=== PATIENT | male | born 1935 | race Caucasian/White ===

== ENCOUNTER 2017-07-09 08:43 | Inpatient (IN) ==
[2017-07-09 10:07] LABS: Basophils % 0.1 % (0.1-2.0); Eosinophils % 0.1 % (0.1-12.0); Hemoglobin 8.9 g/dL (14.1-18.0); Lymphocytes # 0.5 K/mm3 (0.7-4.5); Lymphocytes % 4.3 K/mm3 (10-50); Mean Corpuscular HGB Conc 29.7 g/dL (31.8-35.4); Mean Corpuscular Hemoglobin 29.9 pg (27.0-31.2); Mean Corpuscular Volume 100.6 fl (80-94); Mean Platelet Volume 8.2 fl (7.4-10.4); Monocytes # 0.4 K/mm3 (0.1-1.0); Monocytes % 3.1 % (1.7-9.3); Neutrophils # 10.2 K/mm3 (1.8-7.8); Neutrophils % 92.3 % (37.0-80.0); Platelet Count 540 K/mm3 (142-424); Red Blood Count 2.99 M/mm3 (4.60-6.20); Red Cell Distribution Width 15.3 % (11.5-17.5)
[2017-07-09 10:22] LABS: Anion Gap 6.6 mEq/L (5-15); Potassium 3.6 mmoL/L (3.5-5.1)
[2017-07-09 10:35] LABS: Albumin Level 1.7 gm/dL (3.4-5.0); Bilirubin,Direct 0.2 mg/dL (0.0-0.2); Bilirubin,Total 0.3 mg/dL (0.2-1.0); Total Protein,Serum 7.1 gm/dL (6.4-8.2)
--- NOTE | 2017-07-09 10:35 | Emergency Department Note ---
ED Disposition Clinical Impression: COPD with exacerbation, Hypoxia Pneumonia Qualifiers: Pneumonia type: due to unspecified organism Laterality: unspecified laterality Lung location: unspecified part of lung Qualified Code(s): J18.9 - Pneumonia, unspecified organism Disposition: Admitted As Inpatient Condition on Discharge: Fair Time of Disposition: 10:48 - Critical Care Critical Care Time: No Attestation: On 07/09/17, the high probability of a clinically significant, sudden or life threatening deterioration of the following system(s) required my full and direct attention, intervention and personal management. The time I documented below is in addition to time spent performing reported procedures but includes the following listed in this critical care notation. Medical Decision Making - Medical Records Medical records reviewed: Yes: I reviewed the patient's medical records. - [place] Inquiry Pt receiving controlled substance: No Vital Signs: 07/09/17 08:44 07/09/17 11:49 Temperature 98.6 F 98.0 F Temperature Source Oral Oral Pulse Rate 98 H Pulse Rate [Left Radial] 115 H Respiratory Rate 24 17 Blood Pressure 107/52 Blood Pressure [Right Arm] 125/49 Blood Pressure Mean [Right Arm] 74 Blood Pressure Source [Right Arm] Automatic Cuff Blood Pressure Position Sitting Blood Pressure Position [Right Arm] Supine 02 Sat by Pulse Oximetry 95 Oxygen Delivery Method Non-Rebreather Room Air - Lab Data Lab Results 07/09/17 09:50: WBC 11.0 H, RBC 2.99 L, Hgb 8.9 L, Hct 30.0 L, MCV 100.6 H, MCH 29.9, MCHC 29.7 L, RDW 15.3, Plt Count 540 H, MPV 8.2, Neut % (Auto) 92.3 H, Lymph % (Auto) 4.3 L, [place] % (Auto) 3.1, Eos % (Auto) 0.1, Baso % (Auto) 0.1, Neut # (Auto) 10.2 H, Lymph # (Auto) 0.5 L, [place] # (Auto) 0.4, Eos # (Auto) 0.0 , Baso # (Auto) 0.0, Total Counted 100, Neutrophils % (Manual) 93 H, Band Neutrophils % 1.0, Lymphocytes % (Manual) 3 L, Monocytes % (Manual) 3, Platelet Estimate Marked increase, RBC Morphology Normal 07/09/17 09:50: Sodium 139, Potassium 3.6, Chloride 101, Carbon Dioxide 35 H, Anion Gap 6.6, BUN 11, Creatinine 0.73, Estimated Creat Clear 57, Estimated GFR 103, Est GFR ( Amer) 124, Glucose 221 H 07/09/17 09:50: Lactic Acid 1.9 07/09/17 09:50: Total Bilirubin 0.3, Direct Bilirubin 0.2, AST 17, ALT 11 L, Alkaline Phosphatase 92, Total Protein 7.1, Albumin 1.7 L 07/09/17 09:50: Total Creatine Kinase 22 L, CK-MB (CK-2) 0.8, CK-MB (CK-2) Rel Index 3.6, Troponin I 0.06 Result diagrams: 07/10/17 06:24 07/10/17 06:24 Orders (Tests/Meds): ED MEDICATIONS Generic Name Dose Route Start Last Admin Trade Name Freq PRN Reason Stop Dose Admin Acetaminophen 500 mg 07/09/17 15:56 Tylenol 500mg Tablet PO 08/08/17 15:55 Q4HP PRN pain Acetaminophen/Codeine Phosphate 1 each 07/10/17 08:30 07/10/17 09:07 Tylenol #3 Tablet PO 08/09/17 08:29 1 each Q4HP PRN Administration BREAKTHROUGH PAIN Albuterol/Ipratropium 3 ml 07/09/17 20:00 07/10/17 06:37 Duoneb 3ml Neb IH 08/08/17 19:59 3 ml TIDRT CHITO Administration Alprazolam 0.25 mg 07/09/17 21:00 07/09/17 20:49 Xanax 0.25mg Tablet PO 08/08/17 20:59 0.25 mg HS CHITO Administration Amlodipine Besylate 10 mg 07/10/17 09:00 07/10/17 09:01 Norvasc 10mg Tablet PO 08/09/17 08:59 10 mg DAILY CHITO Administration Carvedilol 12.5 mg 07/09/17 17:00 07/10/17 06:55 Coreg 12.5mg Tablet PO 08/08/17 16:59 12.5 mg 0700,1700 CHITO Administration Clopidogrel Bisulfate 75 mg 07/10/17 09:00 07/10/17 09:03 Plavix 75mg Tablet PO 08/09/17 08:59 75 mg DAILY CHITO Administration Docusate Sodium 250 mg 07/10/17 09:00 07/10/17 09:02 Colace 250mg Capsule PO 08/09/17 08:59 250 mg DAILY CHITO Administration Donepezil HCl 10 mg 07/09/17 21:00 07/09/17 21:11 Aricept 10mg Tablet PO 08/08/17 20:59 Not Given HS [facility] Famotidine 20 mg 07/10/17 09:00 07/10/17 09:02 Pepcid 20mg Tablet PO 08/09/17 08:59 20 mg DAILY CHITO Administration Ferrous Sulfate 325 mg 07/09/17 21:00 07/10/17 09:06 Ferrous Sulfate 325mg Tablet PO 08/08/17 20:59 325 mg BID CHITO Administration Gabapentin 300 mg 07/09/17 21:00 07/10/17 09:02 Neurontin 300mg Capsule PO 08/08/17 20:59 300 mg TID CHITO Administration Guaifenesin 100 mg 07/09/17 15:56 Robitussin 200mg/10ml Syrup Udc PO 08/08/17 15:55 Q6HP PRN Cough Levofloxacin/Dextrose 500 mg in 100 mls @ 100 mls/hr 07/10/17 09:00 07/10/17 09:05 Levaquin 500mg/100ml Premix IV 07/23/17 08:59 100 mls/hr Q24H CHITO Administration Protocol Sodium Chloride 1,000 mls @ 75 mls/hr 07/09/17 11:42 07/10/17 08:00 Sod Chlor 0.9% 1000ml Bag IV 08/08/17 11:41 75 mls/hr .[id number] CHITO Administration Piperacillin Sod/Tazobactam 50 mls @ 100 mls/hr 07/09/17 17:00 07/10/17 11:42 Sod 3.375 gm/ Sodium Chloride IV 07/23/17 16:59 100 mls/hr Q6 CHITO Administration Protocol Sodium Chloride 250 mls @ 25 mls/hr 07/09/17 18:30 07/10/17 08:00 Sod Chlor 0.9% 250ml Bag IV 07/10/17 18:29 Not Given .Q10H CHITO Isosorbide Mononitrate 30 mg 07/10/17 09:00 07/10/17 09:03 Imdur 30mg Er Tablet PO 08/09/17 08:59 30 mg DAILY CHITO Administration Lactobacillus 1 cap 07/09/17 21:00 07/10/17 09:02 Noy-Q Probiotic Capsule PO 08/08/17 20:59 1 cap BID CHITO Administration Mirtazapine 15 mg 07/09/17 21:00 07/09/17 20:50 Remeron 15mg Tablet PO 08/08/17 20:59 15 mg HS CHITO Administration Ondansetron HCl 4 mg 07/09/17 15:56 Zofran 4mg Odt PO Q8H PRN Nausea Quetiapine Fumarate 25 mg 07/09/17 21:00 07/09/17 20:49 Seroquel 25mg Tablet PO 08/08/17 20:59 25 mg HS CHITO Administration Discontinued Medications Generic Name Dose Route Start Last Admin Trade Name Freq PRN Reason Stop Dose Admin Atorvastatin Calcium 10 mg 07/09/17 21:00 Lipitor 10mg Tablet PO 08/08/17 20:59 HS CHITO Ferrous Sulfate 325 mg 07/10/17 09:00 Ferrous Sulfate 325mg Tablet PO 08/09/17 08:59 DAILY CHITO Levofloxacin/Dextrose 250 mg in 50 mls @ 100 mls/hr 07/09/17 10:00 07/09/17 10:48 Levaquin 250mg/50ml Premix IV 07/23/17 09:59 Not Given Q24H CHITO Protocol Piperacillin Sod/Tazobactam 100 mls @ 200 mls/hr 07/09/17 10:00 07/09/17 11: 37 Sod 3.375 gm/ Sodium Chloride IV 07/23/17 09:59 200 mls/hr Q6H CHITO Administration Protocol Levofloxacin/Dextrose 500 mg in 100 mls @ 100 mls/hr 07/09/17 10:45 07/09/17 10:42 Levaquin 500mg/100ml Premix IV 07/23/17 10:44 100 mls/hr Q24H CHITO Administration Protocol Piperacillin Sod/Tazobactam 100 mls @ 200 mls/hr 07/09/17 17:00 Sod 3.375 gm/ Sodium Chloride IV 07/23/17 16:59 Q6 CHITO Protocol Loratadine 10 mg 07/10/17 09:00 Claritin 10mg Tablet PO 08/09/17 08:59 DAILY CHITO Multivitamins 1 each 07/10/17 09:00 Multi-Vitamin Plain PO 08/09/17 08:59 DAILY CHITO ORDERS Category Date Time Status Blood Culture Stat Micro 07/09/17 09:50 Results Sputum Culture & Gram Stain Stat Micro 07/09/17 18:10 Results - Radiology Data #1 Image(s): Chest Image Reviewed: Yes I reviewed the patient's radiology results, Yes I reviewed the patient's radiology image, Yes I have reviewed radiologist's interpretation [address] [facility] [address] [place] [address] XRay Report Signed Patient: Mikal Robison MR#: [id number] : 1935 Acct:[id number] Age/Sex: 81 / M ADM Date: 07/09/17 Loc: ER Attending Dr: Ordering Physician: Kennedy Hollingsworth MD Date of Service: 07/09/17 Procedure(s): XR chest portable Accession Number(s): [id number] cc: Mehrdad Toledo MD; Sam Wood MD~ XR chest portable HISTORY: ITS.REASON: SOA ORDERING PHYSICIAN: Kennedy Hollingsworth MD PATIENT AGE: 81 years COMPARISON: 01/01/2017 FINDINGS: There has been a prior median sternotomy with CABG. There is mild cardiomegaly without failure. Increasing density is present in the left lower lobe with obliteration of left hemidiaphragm consistent with left lower lobe consolidation and/or volume loss. There is also increasing density in the left upper lobe and in the lateral aspect of the left midlung. These findings are consistent with left-sided pneumonia. Chronic changes are present with postsurgical changes in the right lower lobe and a faint nodular opacity in the right mid to lower lung zone at 9 mm. IMPRESSION: 1. Left upper and left lower lobe pneumonia. 2. Postsurgical and chronic changes with possible 9 mm nodule in right middle lower lung zone laterally Dictated By: Mehrdad Toledo MD Signed By: <Electronically signed by Mehrdad Toledo MD in OV> 07/09/17 1047 DD/ 1045 - ECG Data Tracing #1 I reviewed this ECG and interpreted as documented below: Heart rate 88, no acute ischemic changes ECG normal with no acute: arrhythmias, ischemia, conduction abnormalities, chamber hypertrophy Normal Sinus Rhythm: Yes - Physician Consults Physician Consulted: Dr Travis Time: 10:30 Reason -: Admission, Pt condition Comment/Response: Advise of patient's presentation and findings, agreeable with hospitalization. - Reevaluation(s) Time: 10:30 Reevaluation #1: Ablation patient appears medically stable, in mild respiratory distress, no longer hypoxic. Advise patient of results obtained, need to place him in hospital, for additional monitoring and IV therapy. Resp/SOB HPI - General Chief Complaint: Shortness of Breath/Dyspnea Stated Complaint: SOA Time Seen by Provider: 07/09/17 08:45 Mode of Arrival: EMS Source of Information: Patient Limitations: No Limitations Description of Symptoms (Recalled from ER Triage Doc. by RN): PT oxygen was 76 on NC, EMS upon arrival o2 was 85, duoneb was given and 02 was in the 90s. - History of Present Illness Patient 80-year-old male patient brought in by EMS with difficulty breathing, pulse ox on arrival is 83% on room air. Patient has been having subjective fever, productive cough for the past 2-3 days, associated with some mild chest pain, no diaphoresis. Patient denies any recent travel, denies recent exposure to sick contacts. MD Complaint: shortness of breath, cough Onset (ago): day(s) (3) Context: recent illness Severity: moderate Consistency/Duration: constant Relieving factors: oxygen Exacerbating factors: lying flat Known history of: COPD Associated symptoms: chest pain, fever, cough, wheezing, sputum production Treatment prior to arrival: oxygen - Related Data Home Medications Medication Instructions Recorded Confirmed ALPRAZolam [Xanax 0.25mg tab] 0.25 mg PO HS 07/09/17 07/09/17 Acetaminophen [Tylenol 500mg 500 mg PO Q4HP PRN 07/09/17 07/09/17 tablet] Acetaminophen with Codeine 1 tab PO Q4HP PRN 07/09/17 07/09/17 [Tylenol with Codeine #3 tablet] Amlodipine Besylate [Amlodipine 10 mg PO DAILY 07/09/17 07/09/17 10mg Tab] Atorvastatin Calcium [Atorvastatin 10 mg PO HS 07/09/17 07/09/17 10mg Tab] Bisacodyl [Bisacodyl 10mg Supp] 10 mg RC DAILYP PRN 07/09/17 07/09/17 Carvedilol [Coreg 12.5mg 12.5 mg PO 0700,1700 07/09/17 07/09/17 Tablet] Cholecalciferol (Vitamin D3) 50,000 unit PO WEEKLY 07/09/17 07/09/17 [Vitamin D3 50,000 unit Cap] Clopidogrel Bisulfate [Plavix 75mg 75 mg PO DAILY 07/09/17 07/09/17 Tab] Docusate Sodium [Colace 250mg 250 mg PO DAILY 07/09/17 07/09/17 capsule] Famotidine [Acid Controller] 20 mg PO DAILY 07/09/17 07/09/17 Ferrous Sulfate [Ferrous Sulfate 325 mg PO DAILY 07/09/17 07/09/17 325mg Tablet] Gabapentin [Gabapentin 300mg Cap] 300 mg PO TID 07/09/17 07/09/17 Ipratropium/Albuterol Sulfate 1 puff IH QIDRT 07/09/17 07/09/17 [Combivent Respimat Inh] Isosorbide Mononitrate [Imdur 30mg 30 mg PO DAILY 07/09/17 07/09/17 ER tablet] L. Acidophilus/L.bulgaricus 1 each PO BID 07/09/17 07/09/17 [Floranex Tablet] Loperamide HCl [Loperamide] 2 mg PO Q3HP PRN 07/09/17 07/09/17 Loratadine [Claritin] 10 mg PO DAILY 07/09/17 07/09/17 Mag Carb/Aluminum Hydrox/Algin 30 ml PO TID 07/09/17 07/09/17 [Gaviscon Extra Strength Liquid] Mirtazapine [Remeron 15mg tablet] 15 mg PO HS 07/09/17 07/09/17 Multivitamin [Multi-Day Vitamins] 1 tab PO DAILY 07/09/17 07/09/17 Nitroglycerin 0.4 mg SL Q5MINP PRN 07/09/17 07/09/17 Ondansetron HCl [Zofran 4mg Tab] 4 mg PO Q8H PRN 07/09/17 07/09/17 Phenol [Chloraseptic] 2 sprays MM Q4H PRN 07/09/17 07/09/17 Quetiapine Fumarate [Seroquel] 25 mg PO HS 07/09/17 07/09/17 Sennosides [Senokot 8.6mg tablet] 17.2 mg PO BID 07/09/17 07/09/17 Sod Phos,M-B/Na Phos,Di-Ba [Enema 133 ml RC DAILY PRN 07/09/17 07/09/17 Ready To Use] Vit C/Dietary Supplement No.18 1,000 mg PO DAILY 07/09/17 07/09/17 [Red Wine Extract Plus Capsule] guaiFENesin [Robafen] 100 mg PO Q6HP PRN 07/09/17 07/09/17 Allergies Allergy/AdvReac Type Severity Reaction Status Date / Time metronidazole [From FLAGYL] Allergy Intermediate I-RASH Verified 07/09/17 09:03 [facility] History I have reviewed the patient's past medical history: Yes Medical History: Reports:: Cancer (Left lung), Diabetes Mellitus Type 2 - Social History Alcohol Intake: never - Psychiatric History Expresses thoughts of harming self/others: None Suicide Plan Description: No Plan ROS Obtained: Yes All systems reviewed & no additional complaints, Yes Systems reviewed as appropriate & no additional complaints - Cardiovascular Cardiovascular: Reports system reviewed and no additional complaints, except as docu, Reports as per HPI, Reports chest pain, Reports chest pain at rest - Respiratory Respiratory: Yes system reviewed and no additional complaints, except as docu, Yes as per HPI, Yes change in phlegm color, Yes chest congestion, Yes cough, Yes dyspnea Physical Exam - General General appearance: alert, in no apparent distress - Head Head exam: atraumatic, normocephalic, normal inspection - Neck Neck exam: Present: normal inspection, full ROM, trachea midline. Absent: meningismus, lymphadenopathy - Chest Chest inspection: Present: normal inspection, symmetric chest wall rise. Absent : tenderness - Respiratory Respiratory exam: Present: respiratory distress (moderate), wheezes - Cardiovascular Cardiovascular exam: Present: regular rate, normal rhythm. Absent: JVD - Abdominal Exam Abdominal exam: Present: soft, normal bowel sounds. Absent: distention, tenderness, guarding - Extremities Exam Extremities exam: Present: normal inspection, full ROM, normal capillary refill. Absent: calf tenderness - Back Exam Back exam: Present: normal inspection. Absent: tenderness - Neurological Exam Neurological exam: Present: alert, oriented X3, CN II-XII intact, normal gait, motor sensory deficit, reflexes normal - Psychiatric Psychiatric exam: Present: depressed, flat affect - Skin Skin exam: Present: warm, dry, intact, normal color - Lymphatic Lymphatic Findings: no adenopathy
[2017-07-09 10:44] LABS: Lymphocytes % 3 % (10-50); Monocytes % 3 % (2-9); Neutrophils % 93 % (42-76); Total Cells Counted 100
[2017-07-09 10:45] LABS: RBC Morphology Normal
--- NOTE | 2017-07-09 13:59 | History & Physical Report ---
*Admission Date: 07/09/17 *Chief complaint: SOA *History of present illness: Mr. Robison is an 81[address] patient of [address] Johnson from [facility] who, according to the senior living record began having SOA today with decreasing saturations even on 6L of oxygen. He does have a hx of CAD, lung cancer, dementia, HLP, iron deficiency anemia, type 2 DM, PVD, COPD, anxiety, hx of peptic ulcer, and HTN. The patient is very hard of hearing and difficult to understand. He can answer yes or no to questions. He states he has had a cough but does not feel SOA. He denies any pain. He was evaluated in the ER and found to have pneumonia. He was admitted for treatment. [facility] History Medical History: Reports:: Anxiety, Cancer (right lung), Chronic Obstructive Pulmonary Disease (COPD), Coronary Artery Disease, Dementia, Diabetes Mellitus Type 2, Hyperlipidemia, Hypertension, Peripheral Vascular Disease, Ulcer Other Medical History: Reports: Anemia, Arthritis Comment: hx of C.Diff, AAA Other Surgeries: Yes: CABG, Cancer Surgery Comment: Perforated Ulcer, Back Surgery, Foot Surgery - *Social History Alcohol Intake: never - Psychiatric History Expresses thoughts of harming self/others: None Suicide Plan Description: No Plan *Family Hx:: Unable to obtain Review of Systems - Constitutional Reports weakness, Denies body ache(s), Denies chills, Denies fever(s) - Eyes Denies blurry vision, Denies double vision - ENT Reports abnormal hearing, Reports difficulty swallowing, Denies nasal congestion - *Cardiovascular Denies chest pain - *Respiratory Reports cough, Denies shortness of breath - *Gastrointestinal Denies abdominal pain, Denies loose stools, Denies nausea, Denies vomiting - *Genitourinary Denies difficulty urinating, Denies painful urination - *Musculoskeletal Denies joint pain, Denies body aches - *Neurologic Reports abnormal speech, Reports weakness Meds Home Medications Medication Instructions Recorded Confirmed Type ALPRAZolam [Xanax 0.25mg tab] 0.25 mg PO HS 07/09/17 07/09/17 History Acetaminophen [Tylenol 500mg 500 mg PO Q4HP PRN 07/09/17 07/09/17 History tablet] Acetaminophen with Codeine 1 tab PO Q4HP PRN 07/09/17 07/09/17 History [Tylenol with Codeine #3 tablet] Amlodipine Besylate [Amlodipine 10 mg PO DAILY 07/09/17 07/09/17 History 10mg Tab] Atorvastatin Calcium [Atorvastatin 10 mg PO HS 07/09/17 07/09/17 History 10mg Tab] Bisacodyl [Bisacodyl 10mg Supp] 10 mg RC DAILYP PRN 07/09/17 07/09/17 History Carvedilol [Coreg 12.5mg 12.5 mg PO 0700,1700 07/09/17 07/09/17 History Tablet] Cholecalciferol (Vitamin D3) 50,000 unit PO WEEKLY 07/09/17 07/09/17 History [Vitamin D3 50,000 unit Cap] Clopidogrel Bisulfate [Plavix 75mg 75 mg PO DAILY 07/09/17 07/09/17 History Tab] Docusate Sodium [Colace 250mg 250 mg PO DAILY 07/09/17 07/09/17 History capsule] Famotidine [Acid Controller] 20 mg PO DAILY 07/09/17 07/09/17 History Ferrous Sulfate [Ferrous Sulfate 325 mg PO DAILY 07/09/17 07/09/17 History 325mg Tablet] Gabapentin [Gabapentin 300mg Cap] 300 mg PO TID 07/09/17 07/09/17 History Ipratropium/Albuterol Sulfate 1 puff IH QIDRT 07/09/17 07/09/17 History [Combivent Respimat Inh] Isosorbide Mononitrate [Imdur 30mg 30 mg PO DAILY 07/09/17 07/09/17 History ER tablet] L. Acidophilus/L.bulgaricus 1 each PO BID 07/09/17 07/09/17 History [Floranex Tablet] Loperamide HCl [Loperamide] 2 mg PO Q3HP PRN 07/09/17 07/09/17 History Loratadine [Claritin] 10 mg PO DAILY 07/09/17 07/09/17 History Mag Carb/Aluminum Hydrox/Algin 30 ml PO TID 07/09/17 07/09/17 History [Gaviscon Extra Strength Liquid] Mirtazapine [Remeron 15mg tablet] 15 mg PO HS 07/09/17 07/09/17 History Multivitamin [Multi-Day Vitamins] 1 tab PO DAILY 07/09/17 07/09/17 History Nitroglycerin 0.4 mg SL Q5MINP PRN 07/09/17 07/09/17 History Ondansetron HCl [Zofran 4mg Tab] 4 mg PO Q8H PRN 07/09/17 07/09/17 History Phenol [Chloraseptic] 2 sprays MM Q4H PRN 07/09/17 07/09/17 History Quetiapine Fumarate [Seroquel] 25 mg PO HS 07/09/17 07/09/17 History Sennosides [Senokot 8.6mg tablet] 17.2 mg PO BID 07/09/17 07/09/17 History Sod Phos,M-B/Na Phos,Di-Ba [Enema 133 ml RC DAILY PRN 07/09/17 07/09/17 History Ready To Use] Vit C/Dietary Supplement No.18 1,000 mg PO DAILY 07/09/17 07/09/17 History [Red Wine Extract Plus Capsule] guaiFENesin [Robafen] 100 mg PO Q6HP PRN 07/09/17 07/09/17 History Allergies Allergy/AdvReac Type Severity Reaction Status Date / Time metronidazole [From FLAGYL] Allergy Intermediate I-RASH Verified 07/09/17 09:03 Exam Vital signs and Labs for Last 24 Hours: Temp Pulse Resp BP Pulse Ox 98.3 F 95 H 20 133/57 92 L 07/09/17 12:09 07/09/17 12:09 07/09/17 12:09 07/09/17 12:09 07/09/17 12:09 Lab Results 07/09/17 09:50: WBC 11.0 H, RBC 2.99 L, Hgb 8.9 L, Hct 30.0 L, MCV 100.6 H, MCH 29.9, MCHC 29.7 L, RDW 15.3, Plt Count 540 H, MPV 8.2, Neut % (Auto) 92.3 H, Lymph % (Auto) 4.3 L, [place] % (Auto) 3.1, Eos % (Auto) 0.1, Baso % (Auto) 0.1, Neut # (Auto) 10.2 H, Lymph # (Auto) 0.5 L, [place] # (Auto) 0.4, Eos # (Auto) 0.0 , Baso # (Auto) 0.0, Total Counted 100, Neutrophils % (Manual) 93 H, Band Neutrophils % 1.0, Lymphocytes % (Manual) 3 L, Monocytes % (Manual) 3, Platelet Estimate Marked increase, RBC Morphology Normal 07/09/17 09:50: Sodium 139, Potassium 3.6, Chloride 101, Carbon Dioxide 35 H, Anion Gap 6.6, BUN 11, Creatinine 0.73, Estimated Creat Clear 57, Estimated GFR 103, Est GFR ( Amer) 124, Glucose 221 H 07/09/17 09:50: Lactic Acid 1.9 07/09/17 09:50: Total Bilirubin 0.3, Direct Bilirubin 0.2, AST 17, ALT 11 L, Alkaline Phosphatase 92, Total Protein 7.1, Albumin 1.7 L 07/09/17 09:50: Total Creatine Kinase 22 L, CK-MB (CK-2) 0.8, CK-MB (CK-2) Rel Index 3.6, Troponin I 0.06 Microbiology Results 07/09/17 09:50 Blood Blood Culture - Pending 07/09/17 09:06 Blood Blood Culture - Pending - Constitutional no acute distress (hard of hearing, mumbled speech) - *Routine HEENT Exam Head: Present: normocephalic, atraumatic Eye: Present: EOMI, PERRL ENT: Present: mucous membranes dry - *Routine Neck Exam Present: supple, full ROM - *Routine Respiratory Exam Present: rhonchi (left side), crackles (left base) - *Routine Cardiovascular Exam Present: RRR - *Routine Abdominal Exam Present: soft, normoactive bowel sounds. Absent: tenderness - *Routine Extremities Exam Present: edema - *Routine Skin Exam Present: intact, pallor - *Routine Neurological Exam Present: alert mumbled speech H&P: Result - Impressions CXR - 1. Left upper and left lower lobe pneumonia. 2. 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 Category: Medical Code(s): D02.21 - Carcinoma in situ of right bronchus and lung (3) ASCVD (arteriosclerotic cardiovascular disease) Current visit: Yes Status: Chronic Category: Medical Code(s): I25.10 - Atherosclerotic heart disease of [place] coronary artery without angina pectoris (4) Hypertension Current visit: Yes Status: Chronic Category: Medical Code(s): I10 - Essential (primary) hypertension (5) Hyperlipidemia Current visit: Yes Status: Chronic Category: Medical Code(s): E78.5 - Hyperlipidemia, unspecified (6) Type 2 diabetes mellitus Current visit: Yes Status: Chronic Category: Medical Code(s): E11.9 - Type 2 diabetes mellitus without complications (7) Iron deficiency anemia Current visit: Yes Status: Chronic Category: Medical Code(s): D50.9 - Iron deficiency anemia, unspecified (8) Dysphagia Current visit: Yes Status: Chronic Category: Medical Code(s): R13.10 - Dysphagia, unspecified (9) COPD (chronic obstructive pulmonary disease) Current visit: Yes Status: Chronic Category: Medical Code(s): J44.9 - Chronic obstructive pulmonary disease, unspecified (10) Chronic peptic ulcer Current visit: Yes Status: Chronic Category: Medical Code(s): K27.7 - Chronic peptic ulcer, site unspecified, without hemorrhage or perforation - Assessment and plan all Dx Assessment and Plan for all problems:: Pt has been started on abx and an oxygen mask. Will get a list of his home medications and discuss further care with Dr. Travis. He has apparently had some issues with dysphagia. Will get a swallowing evaluation as well.
[2017-07-10 07:09] LABS: Basophils % 0.2 % (0.1-2.0); Eosinophils % 0.1 % (0.1-12.0); Hematocrit 36.9 % (42.0-52.0); Lymphocytes # 0.9 K/mm3 (0.7-4.5); Lymphocytes % 7.9 K/mm3 (10-50); Mean Corpuscular HGB Conc 30.6 g/dL (31.8-35.4); Mean Corpuscular Hemoglobin 30.4 pg (27.0-31.2); Mean Corpuscular Volume 99.2 fl (80-94); Mean Platelet Volume 7.9 fl (7.4-10.4); Monocytes # 0.5 K/mm3 (0.1-1.0); Monocytes % 4.3 % (1.7-9.3); Neutrophils # 9.6 K/mm3 (1.8-7.8); Neutrophils % 87.6 % (37.0-80.0); Platelet Count 381 K/mm3 (142-424); Red Blood Count 3.72 M/mm3 (4.60-6.20); Red Cell Distribution Width 15.5 % (11.5-17.5)
[2017-07-10 07:18] LABS: Hemoglobin 11.3 g/dL (14.1-18.0)
--- NOTE | 2017-07-10 07:21 | Pharmacy Consult Notes ---
[facility] Pharmacy VTE Monitoring - Patient Demographics Admission date: 07/09/17 Report Date: 07/10/17 Time: 07:20 Allergies/Adverse Reactions: Patient Allergies metronidazole [From FLAGYL] Allergy (Intermediate, Verified 07/09/17 09:03) I-RASH Height: 1.55 m Weight: 52.418 kg Patient Problems: Current Active Problems Pneumonia (Acute) Carcinoma in situ of right lung (Chronic) ASCVD (arteriosclerotic cardiovascular disease) (Chronic) Hypertension (Chronic) Hyperlipidemia (Chronic) Type 2 diabetes mellitus (Chronic) Iron deficiency anemia (Chronic) Dysphagia (Chronic) COPD (chronic obstructive pulmonary disease) (Chronic) Chronic peptic ulcer (Chronic) - VTE Risk Labs: VTE Related Lab Results Hgb 11.3 g/dL (14.1-18.0) L D 07/10/17 06:24 Hct 36.9 % (42.0-52.0) L 07/10/17 06:24 Plt Count 381 K/mm3 (142-424) D 07/10/17 06:24 BUN 11 mg/dL (7-18) 07/09/17 09:50 Creatinine 0.73 mg/dL (0.70-1.30) 07/09/17 09:50 Estimated Creat Clear 57 mL/min (0-300) 07/09/17 09:50 Was VTE Risk Assessment Performed: Yes VTE Score: 6 VTE Risk Level: Moderate Risk - Prophylaxis VTE Prophylaxis Ordered?: Yes Types of VTE Prophylaxis: TEDS Knee High Location of Applied Device: Bilateral Lower Extremeties - VTE Diagnosis Confirmed Treatment or plan recommended: Continue Current Treatment
[2017-07-10 07:22] LABS: Anion Gap 8.6 mEq/L (5-15); Potassium 3.6 mmoL/L (3.5-5.1)
--- NOTE | 2017-07-10 08:33 | Progress Note ---
Internal Medicine - PN: Subj *Date: 07/10/17 *Time: 08:29 Interval history: Patient is more awake and alert today. He states he has had a cough and some shortness of breath. He slept off and on throughout the night but was uncomfortable. Of note he has a huge stage IV decubitus in the coccygeal area. Wound care has been consulted for treatment. Exam Vital signs and Labs for Last 24 Hours: Temp Pulse Resp BP Pulse Ox 98.7 F 94 H 20 164/68 96 07/10/17 07:34 07/10/17 07:34 07/10/17 07:34 07/10/17 07:34 07/10/17 08:00 Laboratory Results - last 24 hr 07/09/17 18:40: Blood Type O Positive, Antibody Screen Negative, Crossmatch (AHG ) See Detail 07/09/17 18:40: Crossmatch (AHG) See Detail 07/10/17 06:24: WBC 11.0 H, RBC 3.72 L, Hgb 11.3 L D, Hct 36.9 L, MCV 99.2 H, MCH 30.4, MCHC 30.6 L, RDW 15.5, Plt Count 381 D, MPV 7.9, Neut % (Auto) 87.6 H , Lymph % (Auto) 7.9 L, [place] % (Auto) 4.3, Eos % (Auto) 0.1, Baso % (Auto) 0.2, Neut # (Auto) 9.6 H, Lymph # (Auto) 0.9, [place] # (Auto) 0.5, Eos # (Auto) 0.0, Baso # (Auto) 0.0 07/10/17 06:24: Sodium 142, Potassium 3.6, Chloride 104, Carbon Dioxide 33 H, Anion Gap 8.6, BUN 10, Creatinine 0.59 L, Estimated Creat Clear 41, Estimated GFR 131, Est GFR ( Amer) 159 D, Glucose 128 H D I & O for Last 24 hours: Intake & Output 07/07/17 07/08/17 07/09/17 07/10/17 11:59 11:59 11:59 11:59 Intake Total 1880 Balance 1880 Weight 115 lb 9 oz Microbiology Reports for the Last 24 Hours: Microbiology 07/09/17 18:10 Sputum - Expectorated Sputum Gram Stain - Final 07/09/17 18:10 Sputum - Expectorated Sputum Sputum Culture - Preliminary - Constitutional no acute distress - *Routine Respiratory Exam Present: rales (on the left, rhonchi throughout) - *Routine Cardiovascular Exam Present: RRR - *Routine Abdominal Exam Present: soft, normoactive bowel sounds. 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 Category: Medical Code(s): D02.21 - Carcinoma in situ of right bronchus and lung (3) ASCVD (arteriosclerotic cardiovascular disease) Current visit: Yes Status: Chronic Category: Medical Code(s): I25.10 - Atherosclerotic heart disease of [place] coronary artery without angina pectoris (4) Hypertension Current visit: Yes Status: Chronic Category: Medical Code(s): I10 - Essential (primary) hypertension (5) Hyperlipidemia Current visit: Yes Status: Chronic Category: Medical Code(s): E78.5 - Hyperlipidemia, unspecified (6) Type 2 diabetes mellitus Current visit: Yes Status: Chronic Category: Medical Code(s): E11.9 - Type 2 diabetes mellitus without complications (7) Iron deficiency anemia Current visit: Yes Status: Chronic Category: Medical Code(s): D50.9 - Iron deficiency anemia, unspecified (8) Dysphagia Current visit: Yes Status: Chronic Category: Medical Code(s): R13.10 - Dysphagia, unspecified (9) COPD (chronic obstructive pulmonary disease) Current visit: Yes Status: Chronic Category: Medical Code(s): J44.9 - Chronic obstructive pulmonary disease, unspecified (10) Chronic peptic ulcer Current visit: Yes Status: Chronic Category: Medical Code(s): K27.7 - Chronic peptic ulcer, site unspecified, without hemorrhage or perforation (11) Decubitus ulcer, stage 4 Current visit: Yes Status: Acute Category: Medical Code(s): L89.94 - Pressure ulcer of unspecified site, stage 4 - Assessment and plan all Dx Assessment and Plan for all problems:: We will continue IV antibiotics and await sputum culture. According to nursing staff, the patient will not leave on his oxygen mask. He is therefore on nasal oxygen at 3 L and his sats have been in the upper 80s. Patient is uncomfortable due to his decubitus ulcer. Wound care has been consulted and we will resume his Tylenol with Codeine that he was taking at the residential for pain.
[2017-07-10 10:05] LABS: Hypochromasia 3+; Lymphocytes % 6 % (10-50); Monocytes % 9 % (2-9); Neutrophils % 84 % (42-76); Total Cells Counted 100
--- NOTE | 2017-07-10 12:14 | Consult Report ---
*Admission Date: 07/09/17 *Chief complaint: Complex decubitus ulceration *History of present illness: This is an 81-year-old gentleman seen in consultation from the service of Dr. willis for evaluation regarding a complex decubitus ulceration. Below is from his admission H&P: Mr. Robison is an 81yo patient of [address] Johnson from [facility] who, according to the [facility] record began having SOA today with decreasing saturations even on 6L of oxygen. He does have a hx of CAD, lung cancer, dementia, HLP, iron deficiency anemia, type 2 DM, PVD, COPD, anxiety, hx of peptic ulcer, and HTN. The patient is very hard of hearing and difficult to understand. He can answer yes or no to questions. He states he has had a cough but does not feel SOA. He denies any pain. He was evaluated in the ER and found to have pneumonia. He was admitted for treatment. Review of Systems - Review of Systems Review of systems:: unable to obtain - *Neurologic Reports abnormal hearing, Reports abnormal speech, Reports weakness [facility] History Medical History: Reports:: Anxiety, Cancer (Left lung), Chronic Obstructive Pulmonary Disease (COPD), Coronary Artery Disease, Dementia, Diabetes Mellitus Type 2, Hyperlipidemia, Hypertension, Peripheral Vascular Disease, Ulcer Other Medical History: Reports: Anemia, Arthritis Other Surgeries: Yes: CABG, Cancer Surgery - *Social History Alcohol Intake: never - Psychiatric History Expresses thoughts of harming self/others: None Suicide Plan Description: No Plan Pschychiatric History:: Reports:: Anxiety *Family Hx:: Unable to obtain Meds Home Medications Medication Instructions Recorded Confirmed Type ALPRAZolam [Xanax 0.25mg tab] 0.25 mg PO HS 07/09/17 07/09/17 History Acetaminophen [Tylenol 500mg 500 mg PO Q4HP PRN 07/09/17 07/09/17 History tablet] Acetaminophen with Codeine 1 tab PO Q4HP PRN 07/09/17 07/09/17 History [Tylenol with Codeine #3 tablet] Amlodipine Besylate [Amlodipine 10 mg PO DAILY 07/09/17 07/09/17 History 10mg Tab] Atorvastatin Calcium [Atorvastatin 10 mg PO HS 07/09/17 07/09/17 History 10mg Tab] Bisacodyl [Bisacodyl 10mg Supp] 10 mg RC DAILYP PRN 07/09/17 07/09/17 History Carvedilol [Coreg 12.5mg 12.5 mg PO 0700,1700 07/09/17 07/09/17 History Tablet] Cholecalciferol (Vitamin D3) 50,000 unit PO WEEKLY 07/09/17 07/09/17 History [Vitamin D3 50,000 unit Cap] Clopidogrel Bisulfate [Plavix 75mg 75 mg PO DAILY 07/09/17 07/09/17 History Tab] Docusate Sodium [Colace 250mg 250 mg PO DAILY 07/09/17 07/09/17 History capsule] Famotidine [Acid Controller] 20 mg PO DAILY 07/09/17 07/09/17 History Ferrous Sulfate [Ferrous Sulfate 325 mg PO DAILY 07/09/17 07/09/17 History 325mg Tablet] Gabapentin [Gabapentin 300mg Cap] 300 mg PO TID 07/09/17 07/09/17 History Ipratropium/Albuterol Sulfate 1 puff IH QIDRT 07/09/17 07/09/17 History [Combivent Respimat Inh] Isosorbide Mononitrate [Imdur 30mg 30 mg PO DAILY 07/09/17 07/09/17 History ER tablet] L. Acidophilus/L.bulgaricus 1 each PO BID 07/09/17 07/09/17 History [Floranex Tablet] Loperamide HCl [Loperamide] 2 mg PO Q3HP PRN 07/09/17 07/09/17 History Loratadine [Claritin] 10 mg PO DAILY 07/09/17 07/09/17 History Mag Carb/Aluminum Hydrox/Algin 30 ml PO TID 07/09/17 07/09/17 History [Gaviscon Extra Strength Liquid] Mirtazapine [Remeron 15mg tablet] 15 mg PO HS 07/09/17 07/09/17 History Multivitamin [Multi-Day Vitamins] 1 tab PO DAILY 07/09/17 07/09/17 History Nitroglycerin 0.4 mg SL Q5MINP PRN 07/09/17 07/09/17 History Ondansetron HCl [Zofran 4mg Tab] 4 mg PO Q8H PRN 07/09/17 07/09/17 History Phenol [Chloraseptic] 2 sprays MM Q4H PRN 07/09/17 07/09/17 History Quetiapine Fumarate [Seroquel] 25 mg PO HS 07/09/17 07/09/17 History Sennosides [Senokot 8.6mg tablet] 17.2 mg PO BID 07/09/17 07/09/17 History Sod Phos,M-B/Na Phos,Di-Ba [Enema 133 ml RC DAILY PRN 07/09/17 07/09/17 History Ready To Use] Vit C/Dietary Supplement No.18 1,000 mg PO DAILY 07/09/17 07/09/17 History [Red Wine Extract Plus Capsule] guaiFENesin [Robafen] 100 mg PO Q6HP PRN 07/09/17 07/09/17 History Allergies Allergy/AdvReac Type Severity Reaction Status Date / Time metronidazole [From FLAGYL] Allergy Intermediate I-RASH Verified 07/09/17 09:03 Exam Vital signs and Labs for Last 24 Hours: Temp Pulse Resp BP Pulse Ox 98.7 F 94 H 20 164/68 96 07/10/17 07:34 07/10/17 07:34 07/10/17 07:34 07/10/17 07:34 07/10/17 08:00 Laboratory Results - last 24 hr 07/09/17 18:40: Blood Type O Positive, Antibody Screen Negative, Crossmatch (AHG ) See Detail 07/09/17 18:40: Crossmatch (AHG) See Detail 07/10/17 06:24: WBC 11.0 H, RBC 3.72 L, Hgb 11.3 L D, Hct 36.9 L, MCV 99.2 H, MCH 30.4, MCHC 30.6 L, RDW 15.5, Plt Count 381 D, MPV 7.9, Neut % (Auto) 87.6 H , Lymph % (Auto) 7.9 L, [place] % (Auto) 4.3, Eos % (Auto) 0.1, Baso % (Auto) 0.2, Neut # (Auto) 9.6 H, Lymph # (Auto) 0.9, [place] # (Auto) 0.5, Eos # (Auto) 0.0, Baso # (Auto) 0.0, Total Counted 100, Neutrophils % (Manual) 84 H, Band Neutrophils % 1.0, Lymphocytes % (Manual) 6 L, Monocytes % (Manual) 9, Platelet Estimate Normal, RBC Morphology Not Reportable, Hypochromasia 3+ 07/10/17 06:24: Sodium 142, Potassium 3.6, Chloride 104, Carbon Dioxide 33 H, Anion Gap 8.6, BUN 10, Creatinine 0.59 L, Estimated Creat Clear 41, Estimated GFR 131, Est GFR ( Amer) 159 D, Glucose 128 H D I & O for Last 24 hours: Intake & Output 07/08/17 07/09/17 07/10/17 07/11/17 11:59 11:59 11:59 11:59 Intake Total 1881 / 1881 Balance 1881 / 1881 Weight 115 lb 9 oz Microbiology Reports for the Last 24 Hours: Microbiology 07/09/17 18:10 Sputum - Expectorated Sputum Gram Stain - Final 07/09/17 18:10 Sputum - Expectorated Sputum Sputum Culture - Preliminary - Constitutional no acute distress, chronically ill appearing - *Routine Respiratory Exam Absent: respiratory distress - *Routine Skin Exam Comments: Complex sacral decubitus ulceration with overlying tissue necrosis. Depth of wound in some areas to periosteal margin. Results - Labs 07/10/17 06:24 07/10/17 06:24 Laboratory Results - last 24 hr 07/09/17 18:40: Blood Type O Positive, Antibody Screen Negative, Crossmatch (AHG ) See Detail 07/09/17 18:40: Crossmatch (AHG) See Detail 07/10/17 06:24: WBC 11.0 H, RBC 3.72 L, Hgb 11.3 L D, Hct 36.9 L, MCV 99.2 H, MCH 30.4, MCHC 30.6 L, RDW 15.5, Plt Count 381 D, MPV 7.9, Neut % (Auto) 87.6 H , Lymph % (Auto) 7.9 L, [place] % (Auto) 4.3, Eos % (Auto) 0.1, Baso % (Auto) 0.2, Neut # (Auto) 9.6 H, Lymph # (Auto) 0.9, [place] # (Auto) 0.5, Eos # (Auto) 0.0, Baso # (Auto) 0.0, Total Counted 100, Neutrophils % (Manual) 84 H, Band Neutrophils % 1.0, Lymphocytes % (Manual) 6 L, Monocytes % (Manual) 9, Platelet Estimate Normal, RBC Morphology Not Reportable, Hypochromasia 3+ 07/10/17 06:24: Sodium 142, Potassium 3.6, Chloride 104, Carbon Dioxide 33 H, Anion Gap 8.6, BUN 10, Creatinine 0.59 L, Estimated Creat Clear 41, Estimated GFR 131, Est GFR ( Amer) 159 D, Glucose 128 H D 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 Category: Medical Code(s): D02.21 - Carcinoma in situ of right bronchus and lung (3) ASCVD (arteriosclerotic cardiovascular disease) Current visit: Yes Status: Chronic Category: Medical Code(s): I25.10 - Atherosclerotic heart disease of [place] coronary artery without angina pectoris (4) Hypertension Current visit: Yes Status: Chronic Category: Medical Code(s): I10 - Essential (primary) hypertension (5) Hyperlipidemia Current visit: Yes Status: Chronic Category: Medical Code(s): E78.5 - Hyperlipidemia, unspecified (6) Type 2 diabetes mellitus Current visit: Yes Status: Chronic Category: Medical Code(s): E11.9 - Type 2 diabetes mellitus without complications (7) Iron deficiency anemia Current visit: Yes Status: Chronic Category: Medical Code(s): D50.9 - Iron deficiency anemia, unspecified (8) Dysphagia Current visit: Yes Status: Chronic Category: Medical Code(s): R13.10 - Dysphagia, unspecified (9) COPD (chronic obstructive pulmonary disease) Current visit: Yes Status: Chronic Category: Medical Code(s): J44.9 - Chronic obstructive pulmonary disease, unspecified (10) Chronic peptic ulcer Current visit: Yes Status: Chronic Category: Medical Code(s): K27.7 - Chronic peptic ulcer, site unspecified, without hemorrhage or perforation (11) Decubitus ulcer, stage 4 Current visit: Yes Status: Acute Qualifiers: Pressure ulcer location: sacral region Qualified Code(s): L89.154 - Pressure ulcer of sacral region, stage 4 Category: Medical Code(s): L89.94 - Pressure ulcer of unspecified site, stage 4 Complex sacral decubitus ulceration with overlying patchy soft tissue necrosis Debridement of necrotic soft tissue Continue dressing changes Pressure relief
--- NOTE | 2017-07-10 12:20 | Operative Note ---
Date of procedure: 07/10/17 Pre-op Diagnosis:: Complex sacral decubitus ulceration with soft tissue necrosis Post-op Diagnosis:: Same Procedure performed:: Debridement of necrotic soft tissue from sacral decubitus ulceration (at bedside ) Surgeon:: Sam Wood MD Anesthesia: none Estimated blood loss (mL): 10 Operative findings:: Necrotic soft tissue that approached periosteal margin Operative note:: The patient was transferred to a left lateral decubitus position. The necrotic soft tissue was elevated and sharply resected with scalpel. In areas this necrotic tissue approach the periosteal margin. Cautery was utilized to achieve hemostasis along the skin margin and dressings were applied. The patient tolerated the procedure. Condition: stable Disposition: no change Complications:: No immediate
--- NOTE | 2017-07-11 07:26 | Progress Note ---
Subjective Patient reports: no new complaints (Resting. Placed on pressure-relief bed yesterday.) Exam Vital signs and Labs for Last 24 Hours: Temp Pulse Resp BP Pulse Ox 98.1 F 82 20 125/50 95 07/11/17 03:46 07/11/17 06:11 07/11/17 03:46 07/11/17 03:46 07/11/17 06:11 Laboratory Results - last 24 hr 07/10/17 06:24: Total Counted 100, Neutrophils % (Manual) 84 H, Band Neutrophils % 1.0, Lymphocytes % (Manual) 6 L, Monocytes % (Manual) 9, Platelet Estimate Normal, RBC Morphology Not Reportable, Hypochromasia 3+ 07/10/17 06:24: Sodium 142, Potassium 3.6, Chloride 104, Carbon Dioxide 33 H, Anion Gap 8.6, BUN 10, Creatinine 0.59 L, Estimated Creat Clear 41, Estimated GFR 131, Est GFR ( Amer) 159 D, Glucose 128 H D I & O for Last 24 hours: Intake & Output 07/08/17 07/09/17 07/10/17 07/11/17 11:59 11:59 11:59 11:59 Intake Total 1881 / 1881 1007 / 1007 Balance 1881 / 1881 1007 / 1007 Weight 115 lb 9 oz Microbiology Reports for the Last 24 Hours: Microbiology 07/09/17 18:10 Sputum - Expectorated Sputum Gram Stain - Final 07/09/17 18:10 Sputum - Expectorated Sputum Sputum Culture - Preliminary - Constitutional no acute distress - *Routine Skin Exam Comments: dressing intact 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 Current Visit: Yes (3) ASCVD (arteriosclerotic cardiovascular disease) Status: Chronic Current Visit: Yes (4) Hypertension Status: Chronic Current Visit: Yes (5) Hyperlipidemia Status: Chronic Current Visit: Yes (6) Type 2 diabetes mellitus Status: Chronic Current Visit: Yes (7) Iron deficiency anemia Status: Chronic Current Visit: Yes (8) Dysphagia Status: Chronic Current Visit: Yes (9) COPD (chronic obstructive pulmonary disease) Status: Chronic Current Visit: Yes (10) Chronic peptic ulcer Status: Chronic Current Visit: Yes (11) Decubitus ulcer, stage 4 Status: Acute Assessment and plan: Necrotic tissue debrided yesterday Continue pressure relief Dressing changes twice daily May require additional debridement within the next 24-48 hours Current Visit: Yes
--- NOTE | 2017-07-11 08:30 | Progress Note ---
Internal Medicine - PN: Subj *Date: 07/11/17 *Time: 08:27 Interval history: She is sleeping this morning and snoring. He does not wake up for exam. He did have his decubitus ulcer debrided by Dr. Wood yesterday and is in a pressure relieving bed at this time. Exam Vital signs and Labs for Last 24 Hours: Temp Pulse Resp BP Pulse Ox 97.5 F L 75 22 103/43 98 07/11/17 07:39 07/11/17 07:39 07/11/17 07:39 07/11/17 07:39 07/11/17 07:39 Laboratory Results - last 24 hr 07/10/17 06:24: Total Counted 100, Neutrophils % (Manual) 84 H, Band Neutrophils % 1.0, Lymphocytes % (Manual) 6 L, Monocytes % (Manual) 9, Platelet Estimate Normal, RBC Morphology Not Reportable, Hypochromasia 3+ I & O for Last 24 hours: Intake & Output 07/08/17 07/09/17 07/10/17 07/11/17 11:59 11:59 11:59 11:59 Intake Total 1881 / 1881 1007 / 1007 Balance 1881 / 1881 1007 / 1007 Weight 115 lb 9 oz Microbiology Reports for the Last 24 Hours: Microbiology 07/09/17 18:10 Sputum - Expectorated Sputum Gram Stain - Final 07/09/17 18:10 Sputum - Expectorated Sputum Sputum Culture - Preliminary - Constitutional Comments: Sleeping - *Routine Respiratory Exam Present: rales (left side) - *Routine Cardiovascular Exam Present: RRR - *Routine Abdominal Exam Present: soft, normoactive bowel sounds. 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 Category: Medical Code(s): D02.21 - Carcinoma in situ of right bronchus and lung (3) ASCVD (arteriosclerotic cardiovascular disease) Current visit: Yes Status: Chronic Category: Medical Code(s): I25.10 - Atherosclerotic heart disease of [place] coronary artery without angina pectoris (4) Hypertension Current visit: Yes Status: Chronic Category: Medical Code(s): I10 - Essential (primary) hypertension (5) Hyperlipidemia Current visit: Yes Status: Chronic Category: Medical Code(s): E78.5 - Hyperlipidemia, unspecified (6) Type 2 diabetes mellitus Current visit: Yes Status: Chronic Category: Medical Code(s): E11.9 - Type 2 diabetes mellitus without complications (7) Iron deficiency anemia Current visit: Yes Status: Chronic Category: Medical Code(s): D50.9 - Iron deficiency anemia, unspecified (8) Dysphagia Current visit: Yes Status: Chronic Category: Medical Code(s): R13.10 - Dysphagia, unspecified (9) COPD (chronic obstructive pulmonary disease) Current visit: Yes Status: Chronic Category: Medical Code(s): J44.9 - Chronic obstructive pulmonary disease, unspecified (10) Chronic peptic ulcer Current visit: Yes Status: Chronic Category: Medical Code(s): K27.7 - Chronic peptic ulcer, site unspecified, without hemorrhage or perforation (11) Decubitus ulcer, stage 4 Current visit: Yes Status: Acute Qualifiers: Pressure ulcer location: sacral region Qualified Code(s): L89.154 - Pressure ulcer of sacral region, stage 4 Category: Medical Code(s): L89.94 - Pressure ulcer of unspecified site, stage 4 - Assessment and plan all Dx Assessment and Plan for all problems:: Will continue antibiotics. Surgery to follow for decubitus ulcer.
--- NOTE | 2017-07-12 08:31 | Progress Note ---
Subjective Narrative: No issues. Undergoing dressing changes. Exam Vital signs and Labs for Last 24 Hours: Temp Pulse Resp BP Pulse Ox 98.6 F 86 20 123/54 99 07/12/17 07:33 07/12/17 07:33 07/12/17 07:33 07/12/17 07:33 07/12/17 08:00 Laboratory Results - last 24 hr 07/11/17 09:05: Retic Count (auto) 1.0 I & O for Last 24 hours: Intake & Output 07/09/17 07/10/17 07/11/17 07/12/17 11:59 11:59 11:59 11:59 Intake Total 1980 1067 / 1067 300 / 300 Balance 1980 1067 / 1067 300 / 300 Weight 115 lb 9 oz 115 lb 8.99 oz Microbiology Reports for the Last 24 Hours: Microbiology 07/09/17 18:10 Sputum - Expectorated Sputum Gram Stain - Final 07/09/17 18:10 Sputum - Expectorated Sputum Sputum Culture - Preliminary Gram Positive Cocci Gram Positive Cocci#2 - *Routine Skin Exam Comments: Large sacral decubitus ulcer. Some minimal necrotic tissue and exudate. 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 Current Visit: Yes (3) ASCVD (arteriosclerotic cardiovascular disease) Status: Chronic Current Visit: Yes (4) Hypertension Status: Chronic Current Visit: Yes (5) Hyperlipidemia Status: Chronic Current Visit: Yes (6) Type 2 diabetes mellitus Status: Chronic Current Visit: Yes (7) Iron deficiency anemia Status: Chronic Current Visit: Yes (8) Dysphagia Status: Chronic Current Visit: Yes (9) COPD (chronic obstructive pulmonary disease) Status: Chronic Current Visit: Yes (10) Chronic peptic ulcer Status: Chronic Current Visit: Yes (11) Decubitus ulcer, stage 4 Status: Acute Assessment and plan: Continue current wound care. Exudate may "clean up" with dressing changes. Current Visit: Yes
--- NOTE | 2017-07-12 10:33 | Progress Note ---
Internal Medicine - PN: Subj *Date: 07/12/17 *Time: 10:33 Exam Vital signs and Labs for Last 24 Hours: Temp Pulse Resp BP Pulse Ox 98.6 F 86 20 123/54 99 07/12/17 07:33 07/12/17 07:33 07/12/17 07:33 07/12/17 07:33 07/12/17 08:00 Laboratory Results - last 24 hr 07/11/17 09:05: Retic Count (auto) 1.0 I & O for Last 24 hours: Intake & Output 07/09/17 07/10/17 07/11/17 07/12/17 23:59 23:59 23:59 23:59 Intake Total 704 / 704 2284 / 2284 460 / 460 Balance 704 / 704 2284 / 2284 460 / 460 Weight 52.418 kg 52.418 kg Microbiology Reports for the Last 24 Hours: Microbiology 07/09/17 18:10 Sputum - Expectorated Sputum Gram Stain - Final 07/09/17 18:10 Sputum - Expectorated Sputum Sputum Culture - Preliminary Gram Positive Cocci Gram Positive Cocci#2 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 Category: Medical Code(s): D02.21 - Carcinoma in situ of right bronchus and lung (3) ASCVD (arteriosclerotic cardiovascular disease) Current visit: Yes Status: Chronic Category: Medical Code(s): I25.10 - Atherosclerotic heart disease of [place] coronary artery without angina pectoris (4) Hypertension Current visit: Yes Status: Chronic Category: Medical Code(s): I10 - Essential (primary) hypertension (5) Hyperlipidemia Current visit: Yes Status: Chronic Category: Medical Code(s): E78.5 - Hyperlipidemia, unspecified (6) Type 2 diabetes mellitus Current visit: Yes Status: Chronic Category: Medical Code(s): E11.9 - Type 2 diabetes mellitus without complications (7) Iron deficiency anemia Current visit: Yes Status: Chronic Category: Medical Code(s): D50.9 - Iron deficiency anemia, unspecified (8) Dysphagia Current visit: Yes Status: Chronic Category: Medical Code(s): R13.10 - Dysphagia, unspecified (9) COPD (chronic obstructive pulmonary disease) Current visit: Yes Status: Chronic Category: Medical Code(s): J44.9 - Chronic obstructive pulmonary disease, unspecified (10) Chronic peptic ulcer Current visit: Yes Status: Chronic Category: Medical Code(s): K27.7 - Chronic peptic ulcer, site unspecified, without hemorrhage or perforation (11) Decubitus ulcer, stage 4 Current visit: Yes Status: Acute Qualifiers: Pressure ulcer location: sacral region Qualified Code(s): L89.154 - Pressure ulcer of sacral region, stage 4 Category: Medical Code(s): L89.94 - Pressure ulcer of unspecified site, stage 4 The patient's infection will respond to the chosen ABx?: Yes Is the patient receiving the right drug, dose, and route?: Yes Could a more targeted ABx be ordered?: No
--- NOTE | 2017-07-12 12:17 | Progress Note ---
Internal Medicine - PN: Subj *Date: 07/12/17 *Time: 12:14 Interval history: Clinically he is improved. Blood work is ordered for today and is pending. He is alert and animated. His lungs seem clear he is moving air well. He does not have a lot of edema of the legs. Exam Vital signs and Labs for Last 24 Hours: Temp Pulse Resp BP Pulse Ox 98.4 F 82 20 104/44 97 07/12/17 11:32 07/12/17 11:32 07/12/17 11:32 07/12/17 11:32 07/12/17 11:32 I & O for Last 24 hours: Intake & Output 07/10/17 07/11/17 07/12/17 07/13/17 11:59 11:59 11:59 11:59 Intake Total 1980 1167 / 1167 540 / 540 Balance 1980 1167 / 1167 540 / 540 Weight 115 lb 9 oz 115 lb 8.99 oz Microbiology Reports for the Last 24 Hours: Microbiology 07/09/17 18:10 Sputum - Expectorated Sputum Gram Stain - Final 07/09/17 18:10 Sputum - Expectorated Sputum Sputum Culture - Preliminary Gram Positive Cocci Gram Positive Cocci#2 - Constitutional no acute distress - *Routine HEENT Exam Eye: Absent: conjunctival icterus ENT: Present: mucous membranes moist - *Routine Cardiovascular Exam Present: RRR - *Routine Abdominal Exam Present: soft - *Routine Extremities Exam Comments: Trace edema HELEN stockings in place. Heel pads are in place - *Routine Neurological Exam Pain deficit. He is very alert and responsive. 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 Category: Medical Code(s): D02.21 - Carcinoma in situ of right bronchus and lung (3) ASCVD (arteriosclerotic cardiovascular disease) Current visit: Yes Status: Chronic Category: Medical Code(s): I25.10 - Atherosclerotic heart disease of [place] coronary artery without angina pectoris (4) Hypertension Current visit: Yes Status: Chronic Category: Medical Code(s): I10 - Essential (primary) hypertension (5) Hyperlipidemia Current visit: Yes Status: Chronic Category: Medical Code(s): E78.5 - Hyperlipidemia, unspecified (6) Type 2 diabetes mellitus Current visit: Yes Status: Chronic Category: Medical Code(s): E11.9 - Type 2 diabetes mellitus without complications (7) Iron deficiency anemia Current visit: Yes Status: Chronic Category: Medical Code(s): D50.9 - Iron deficiency anemia, unspecified (8) Dysphagia Current visit: Yes Status: Chronic Category: Medical Code(s): R13.10 - Dysphagia, unspecified (9) COPD (chronic obstructive pulmonary disease) Current visit: Yes Status: Chronic Category: Medical Code(s): J44.9 - Chronic obstructive pulmonary disease, unspecified (10) Chronic peptic ulcer Current visit: Yes Status: Chronic Category: Medical Code(s): K27.7 - Chronic peptic ulcer, site unspecified, without hemorrhage or perforation (11) Decubitus ulcer, stage 4 Current visit: Yes Status: Acute Qualifiers: Pressure ulcer location: sacral region Qualified Code(s): L89.154 - Pressure ulcer of sacral region, stage 4 Category: Medical Code(s): L89.94 - Pressure ulcer of unspecified site, stage 4 - Assessment and plan all Dx Assessment and Plan for all problems:: To new present care.
[2017-07-12 15:01] LABS: Basophils % 0.3 % (0.1-2.0); Eosinophils # 0.2 K/mm3 (0.0-0.4); Eosinophils % 2.1 % (0.1-12.0); Hematocrit 31.2 % (42.0-52.0); Hemoglobin 9.9 g/dL (14.1-18.0); Lymphocytes # 0.9 K/mm3 (0.7-4.5); Lymphocytes % 9.5 K/mm3 (10-50); Mean Corpuscular HGB Conc 31.7 g/dL (31.8-35.4); Mean Corpuscular Hemoglobin 30.2 pg (27.0-31.2); Mean Corpuscular Volume 95.1 fl (80-94); Mean Platelet Volume 8.9 fl (7.4-10.4); Monocytes # 0.8 K/mm3 (0.1-1.0); Monocytes % 8.2 % (1.7-9.3); Neutrophils # 7.8 K/mm3 (1.8-7.8); Platelet Count 340 K/mm3 (142-424); Red Blood Count 3.28 M/mm3 (4.60-6.20); Red Cell Distribution Width 15.5 % (11.5-17.5); White Blood Count 9.7 K/mm3 (4.8-10.8)
[2017-07-12 15:15] LABS: Anion Gap 6.6 mEq/L (5-15)
[2017-07-12 15:18] LABS: Potassium 2.6 mmoL/L (3.5-5.1)
--- NOTE | 2017-07-13 08:02 | Progress Note ---
Subjective Narrative: Had several additional dressing changes yesterday due to bowel movement. Exam Vital signs and Labs for Last 24 Hours: Temp Pulse Resp BP Pulse Ox 97.7 F 72 18 112/46 98 07/13/17 07:40 07/13/17 07:40 07/13/17 07:40 07/13/17 07:40 07/13/17 07:40 Laboratory Results - last 24 hr 07/11/17 09:05: Vitamin B12 1260 H 07/12/17 14:50: WBC 9.7, RBC 3.28 L, Hgb 9.9 L, Hct 31.2 L, MCV 95.1 H, MCH 30.2 , MCHC 31.7 L, RDW 15.5, Plt Count 340, MPV 8.9, Neut % (Auto) 80.0, Lymph % ( Auto) 9.5 L, [place] % (Auto) 8.2, Eos % (Auto) 2.1, Baso % (Auto) 0.3, Neut # ( Auto) 7.8, Lymph # (Auto) 0.9, [place] # (Auto) 0.8, Eos # (Auto) 0.2, Baso # (Auto ) 0.0 07/12/17 14:50: Sodium 138, Potassium 2.6 L* D, Chloride 105, Carbon Dioxide 29 , Anion Gap 6.6, BUN 9, Creatinine 0.62 L, Estimated Creat Clear 41, Estimated GFR 124, Est GFR ( Amer) 150, Glucose 153 H I & O for Last 24 hours: Intake & Output 07/10/17 07/11/17 07/12/17 07/13/17 11:59 11:59 11:59 11:59 Intake Total 1980 1167 / 1167 540 / 540 2052 Balance 1980 1167 / 1167 540 / 540 2052 Weight 115 lb 9 oz 115 lb 8.99 oz Microbiology Reports for the Last 24 Hours: Microbiology 07/09/17 18:10 Sputum - Expectorated Sputum Gram Stain - Final 07/09/17 18:10 Sputum - Expectorated Sputum Sputum Culture - Final Staphylococcus aureus - *Routine Respiratory Exam Comments: Wound stable. Some undermining. Some necrotic fascia in base. Less odor. 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 Current Visit: Yes (3) ASCVD (arteriosclerotic cardiovascular disease) Status: Chronic Current Visit: Yes (4) Hypertension Status: Chronic Current Visit: Yes (5) Hyperlipidemia Status: Chronic Current Visit: Yes (6) Type 2 diabetes mellitus Status: Chronic Current Visit: Yes (7) Iron deficiency anemia Status: Chronic Current Visit: Yes (8) Dysphagia Status: Chronic Current Visit: Yes (9) COPD (chronic obstructive pulmonary disease) Status: Chronic Current Visit: Yes (10) Chronic peptic ulcer Status: Chronic Current Visit: Yes (11) Decubitus ulcer, stage 4 Status: Acute Assessment and plan: Continue wound care. Current Visit: Yes
--- NOTE | 2017-07-13 10:04 | Progress Note ---
Internal Medicine - PN: Subj *Date: 07/13/17 *Time: 10:01 Interval history: Cami Robison does not look as well today. He sounds more congested. He is not moving air as well. He is not in distress but he does not look as good as he did yesterday. His potassium was found to be low yesterday 2.6 and he is getting supplemental potassium. He has cultured out staph and antibiotics have been switched to vancomycin. His weight seems to be the same but he does have leg edema. X-ray will be obtained and Lasix will be given. Exam Vital signs and Labs for Last 24 Hours: Temp Pulse Resp BP Pulse Ox 97.7 F 72 18 112/46 98 07/13/17 07:40 07/13/17 07:40 07/13/17 07:40 07/13/17 07:40 07/13/17 07:55 Laboratory Results - last 24 hr 07/11/17 09:05: Vitamin B12 1260 H 07/12/17 14:50: WBC 9.7, RBC 3.28 L, Hgb 9.9 L, Hct 31.2 L, MCV 95.1 H, MCH 30.2 , MCHC 31.7 L, RDW 15.5, Plt Count 340, MPV 8.9, Neut % (Auto) 80.0, Lymph % ( Auto) 9.5 L, [place] % (Auto) 8.2, Eos % (Auto) 2.1, Baso % (Auto) 0.3, Neut # ( Auto) 7.8, Lymph # (Auto) 0.9, [place] # (Auto) 0.8, Eos # (Auto) 0.2, Baso # (Auto ) 0.0 07/12/17 14:50: Sodium 138, Potassium 2.6 L* D, Chloride 105, Carbon Dioxide 29 , Anion Gap 6.6, BUN 9, Creatinine 0.62 L, Estimated Creat Clear 41, Estimated GFR 124, Est GFR ( Amer) 150, Glucose 153 H I & O for Last 24 hours: Intake & Output 07/10/17 07/11/17 07/12/17 07/13/17 11:59 11:59 11:59 11:59 Intake Total 1980 1167 / 1167 540 / 540 2052 Balance 1980 1167 / 1167 540 / 540 2052 Weight 115 lb 9 oz 115 lb 8.99 oz Microbiology Reports for the Last 24 Hours: Microbiology 07/09/17 18:10 Sputum - Expectorated Sputum Gram Stain - Final 07/09/17 18:10 Sputum - Expectorated Sputum Sputum Culture - Final Staphylococcus aureus - *Routine Respiratory Exam Present: decreased breath sounds, wheezes - *Routine Cardiovascular Exam Present: RRR - *Routine Extremities Exam Comments: 2+ edema. 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 Category: Medical Code(s): D02.21 - Carcinoma in situ of right bronchus and lung (3) ASCVD (arteriosclerotic cardiovascular disease) Current visit: Yes Status: Chronic Category: Medical Code(s): I25.10 - Atherosclerotic heart disease of [place] coronary artery without angina pectoris (4) Hypertension Current visit: Yes Status: Chronic Category: Medical Code(s): I10 - Essential (primary) hypertension (5) Hyperlipidemia Current visit: Yes Status: Chronic Category: Medical Code(s): E78.5 - Hyperlipidemia, unspecified (6) Type 2 diabetes mellitus Current visit: Yes Status: Chronic Category: Medical Code(s): E11.9 - Type 2 diabetes mellitus without complications (7) Iron deficiency anemia Current visit: Yes Status: Chronic Category: Medical Code(s): D50.9 - Iron deficiency anemia, unspecified (8) Dysphagia Current visit: Yes Status: Chronic Category: Medical Code(s): R13.10 - Dysphagia, unspecified (9) COPD (chronic obstructive pulmonary disease) Current visit: Yes Status: Chronic Category: Medical Code(s): J44.9 - Chronic obstructive pulmonary disease, unspecified (10) Chronic peptic ulcer Current visit: Yes Status: Chronic Category: Medical Code(s): K27.7 - Chronic peptic ulcer, site unspecified, without hemorrhage or perforation (11) Decubitus ulcer, stage 4 Current visit: Yes Status: Acute Qualifiers: Pressure ulcer location: sacral region Qualified Code(s): L89.154 - Pressure ulcer of sacral region, stage 4 Category: Medical Code(s): L89.94 - Pressure ulcer of unspecified site, stage 4 (12) Staph aureus infection Current visit: Yes Status: Acute Category: Medical Code(s): A49.01 - Methicillin susceptible Staphylococcus aureus infection, unspecified site - Assessment and plan all Dx Assessment and Plan for all problems:: Comycin. Lasix. Check chest x-ray.
--- NOTE | 2017-07-13 10:38 | Pharmacy Consult Notes ---
- Pharmacy Consult Date: 07/13/17 Time: 10:37 Referring provider: DR. CLEVELAND Reason for Consult:: VANCOMYCIN DOSING FOR MRSA + SPUTUM CULTURE Allergies and ADEs:: Allergies Allergy/AdvReac Type Severity Reaction Status Date / Time metronidazole [From FLAGYL] Allergy Intermediate I-RASH Verified 07/09/17 09:03 Home Medications:: Home Medications Medication Instructions Recorded Confirmed Type ALPRAZolam [Xanax 0.25mg tab] 0.25 mg PO HS 07/09/17 07/09/17 History Acetaminophen [Tylenol 500mg 500 mg PO Q4HP PRN 07/09/17 07/09/17 History tablet] Acetaminophen with Codeine 1 tab PO Q4HP PRN 07/09/17 07/09/17 History [Tylenol with Codeine #3 tablet] Amlodipine Besylate [Amlodipine 10 mg PO DAILY 07/09/17 07/09/17 History 10mg Tab] Atorvastatin Calcium [Atorvastatin 10 mg PO HS 07/09/17 07/09/17 History 10mg Tab] Bisacodyl [Bisacodyl 10mg Supp] 10 mg RC DAILYP PRN 07/09/17 07/09/17 History Carvedilol [Coreg 12.5mg 12.5 mg PO 0700,1700 07/09/17 07/09/17 History Tablet] Cholecalciferol (Vitamin D3) 50,000 unit PO WEEKLY 07/09/17 07/09/17 History [Vitamin D3 50,000 unit Cap] Clopidogrel Bisulfate [Plavix 75mg 75 mg PO DAILY 07/09/17 07/09/17 History Tab] Docusate Sodium [Colace 250mg 250 mg PO DAILY 07/09/17 07/09/17 History capsule] Famotidine [Acid Controller] 20 mg PO DAILY 07/09/17 07/09/17 History Ferrous Sulfate [Ferrous Sulfate 325 mg PO DAILY 07/09/17 07/09/17 History 325mg Tablet] Gabapentin [Gabapentin 300mg Cap] 300 mg PO TID 07/09/17 07/09/17 History Ipratropium/Albuterol Sulfate 1 puff IH QIDRT 07/09/17 07/09/17 History [Combivent Respimat Inh] Isosorbide Mononitrate [Imdur 30mg 30 mg PO DAILY 07/09/17 07/09/17 History ER tablet] L. Acidophilus/L.bulgaricus 1 each PO BID 07/09/17 07/09/17 History [Floranex Tablet] Loperamide HCl [Loperamide] 2 mg PO Q3HP PRN 07/09/17 07/09/17 History Loratadine [Claritin] 10 mg PO DAILY 07/09/17 07/09/17 History Mag Carb/Aluminum Hydrox/Algin 30 ml PO TID 07/09/17 07/09/17 History [Gaviscon Extra Strength Liquid] Mirtazapine [Remeron 15mg tablet] 15 mg PO HS 07/09/17 07/09/17 History Multivitamin [Multi-Day Vitamins] 1 tab PO DAILY 07/09/17 07/09/17 History Nitroglycerin 0.4 mg SL Q5MINP PRN 07/09/17 07/09/17 History Ondansetron HCl [Zofran 4mg Tab] 4 mg PO Q8H PRN 07/09/17 07/09/17 History Phenol [Chloraseptic] 2 sprays MM Q4H PRN 07/09/17 07/09/17 History Quetiapine Fumarate [Seroquel] 25 mg PO HS 07/09/17 07/09/17 History Sennosides [Senokot 8.6mg tablet] 17.2 mg PO BID 07/09/17 07/09/17 History Sod Phos,M-B/Na Phos,Di-Ba [Enema 133 ml RC DAILY PRN 07/09/17 07/09/17 History Ready To Use] Vit C/Dietary Supplement No.18 1,000 mg PO DAILY 07/09/17 07/09/17 History [Red Wine Extract Plus Capsule] guaiFENesin [Robafen] 100 mg PO Q6HP PRN 07/09/17 07/09/17 History Height: 1.55 m Weight: 52.418 kg Laboratory Results:: Laboratory Results - last 24 hr 07/11/17 09:05: Vitamin B12 1260 H 07/12/17 14:50: WBC 9.7, RBC 3.28 L, Hgb 9.9 L, Hct 31.2 L, MCV 95.1 H, MCH 30.2 , MCHC 31.7 L, RDW 15.5, Plt Count 340, MPV 8.9, Neut % (Auto) 80.0, Lymph % ( Auto) 9.5 L, [place] % (Auto) 8.2, Eos % (Auto) 2.1, Baso % (Auto) 0.3, Neut # ( Auto) 7.8, Lymph # (Auto) 0.9, [place] # (Auto) 0.8, Eos # (Auto) 0.2, Baso # (Auto ) 0.0 07/12/17 14:50: Sodium 138, Potassium 2.6 L* D, Chloride 105, Carbon Dioxide 29 , Anion Gap 6.6, BUN 9, Creatinine 0.62 L, Estimated Creat Clear 41, Estimated GFR 124, Est GFR ( Amer) 150, Glucose 153 H Medical History: Reports:: Anxiety, Cancer (Left lung), Chronic Obstructive Pulmonary Disease (COPD), Coronary Artery Disease, Dementia, Diabetes Mellitus Type 2, Hyperlipidemia, Hypertension, Peripheral Vascular Disease, Ulcer 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 Category: Medical Code(s): D02.21 - Carcinoma in situ of right bronchus and lung (3) ASCVD (arteriosclerotic cardiovascular disease) Current visit: Yes Status: Chronic Category: Medical Code(s): I25.10 - Atherosclerotic heart disease of [place] coronary artery without angina pectoris (4) Hypertension Current visit: Yes Status: Chronic Category: Medical Code(s): I10 - Essential (primary) hypertension (5) Hyperlipidemia Current visit: Yes Status: Chronic Category: Medical Code(s): E78.5 - Hyperlipidemia, unspecified (6) Type 2 diabetes mellitus Current visit: Yes Status: Chronic Category: Medical Code(s): E11.9 - Type 2 diabetes mellitus without complications (7) Iron deficiency anemia Current visit: Yes Status: Chronic Category: Medical Code(s): D50.9 - Iron deficiency anemia, unspecified (8) Dysphagia Current visit: Yes Status: Chronic Category: Medical Code(s): R13.10 - Dysphagia, unspecified (9) COPD (chronic obstructive pulmonary disease) Current visit: Yes Status: Chronic Category: Medical Code(s): J44.9 - Chronic obstructive pulmonary disease, unspecified (10) Chronic peptic ulcer Current visit: Yes Status: Chronic Category: Medical Code(s): K27.7 - Chronic peptic ulcer, site unspecified, without hemorrhage or perforation (11) Decubitus ulcer, stage 4 Current visit: Yes Status: Acute Qualifiers: Pressure ulcer location: sacral region Qualified Code(s): L89.154 - Pressure ulcer of sacral region, stage 4 Category: Medical Code(s): L89.94 - Pressure ulcer of unspecified site, stage 4 (12) Staph aureus infection Current visit: Yes Status: Acute Category: Medical Code(s): A49.01 - Methicillin susceptible Staphylococcus aureus infection, unspecified site - Assessment and plan all Dx Assessment and Plan for all problems:: BASED ON PATIENT'S FACTORS, RECOMMEND STARTING WITH VANCOMYCIN 1 GM Q24H AT THIS TIME. PHARMACY WILL FOLLOW DAILY AND ADJUST APPROPRIATE. NATANAEL HARTLEY, PHARMD
[2017-07-13 12:09] LABS: Basophils % 0.1 % (0.1-2.0); Eosinophils # 0.2 K/mm3 (0.0-0.4); Eosinophils % 2.3 % (0.1-12.0); Hematocrit 30.9 % (42.0-52.0); Hemoglobin 9.8 g/dL (14.1-18.0); Lymphocytes # 0.9 K/mm3 (0.7-4.5); Lymphocytes % 10.8 K/mm3 (10-50); Mean Corpuscular HGB Conc 31.6 g/dL (31.8-35.4); Mean Corpuscular Hemoglobin 30.7 pg (27.0-31.2); Mean Corpuscular Volume 97.2 fl (80-94); Mean Platelet Volume 9.4 fl (7.4-10.4); Monocytes # 0.6 K/mm3 (0.1-1.0); Monocytes % 7.5 % (1.7-9.3); Neutrophils # 6.4 K/mm3 (1.8-7.8); Neutrophils % 79.3 % (37.0-80.0); Platelet Count 252 K/mm3 (142-424); Red Blood Count 3.18 M/mm3 (4.60-6.20); Red Cell Distribution Width 15.5 % (11.5-17.5); White Blood Count 8.1 K/mm3 (4.8-10.8)
[2017-07-14 07:25] LABS: Basophils % 0.2 % (0.1-2.0); Eosinophils # 0.4 K/mm3 (0.0-0.4); Eosinophils % 4.2 % (0.1-12.0); Hematocrit 31.8 % (42.0-52.0); Lymphocytes # 1.7 K/mm3 (0.7-4.5); Lymphocytes % 20.2 K/mm3 (10-50); Mean Corpuscular HGB Conc 31.4 g/dL (31.8-35.4); Mean Corpuscular Hemoglobin 30.8 pg (27.0-31.2); Mean Corpuscular Volume 98.2 fl (80-94); Mean Platelet Volume 8.4 fl (7.4-10.4); Monocytes # 0.6 K/mm3 (0.1-1.0); Monocytes % 6.8 % (1.7-9.3); Neutrophils # 5.7 K/mm3 (1.8-7.8); Neutrophils % 68.5 % (37.0-80.0); Platelet Count 333 K/mm3 (142-424); Red Blood Count 3.24 M/mm3 (4.60-6.20); Red Cell Distribution Width 15.7 % (11.5-17.5); White Blood Count 8.3 K/mm3 (4.8-10.8)
[2017-07-14 07:47] LABS: Anion Gap 10.8 mEq/L (5-15); Potassium 4.8 mmoL/L (3.5-5.1)
--- NOTE | 2017-07-14 08:15 | Progress Note ---
Internal Medicine - PN: Subj *Date: 07/14/17 *Time: 08:22 Interval history: Difficult to understand. Does indicate that he feels a little better. States he is cold. Dr. Lujan notes reviewed. Electrolytes are normal. Exam Vital signs and Labs for Last 24 Hours: Temp Pulse Resp BP Pulse Ox 98.7 F 85 20 130/70 94 L 07/14/17 07:45 07/14/17 07:45 07/14/17 07:45 07/14/17 07:45 07/14/17 07:45 Laboratory Results - last 24 hr 07/13/17 11:30: WBC 8.1, RBC 3.18 L, Hgb 9.8 L, Hct 30.9 L, MCV 97.2 H, MCH 30.7 , MCHC 31.6 L, RDW 15.5, Plt Count 252 D, MPV 9.4, Neut % (Auto) 79.3, Lymph % (Auto) 10.8, [place] % (Auto) 7.5, Eos % (Auto) 2.3, Baso % (Auto) 0.1, Neut # ( Auto) 6.4, Lymph # (Auto) 0.9, [place] # (Auto) 0.6, Eos # (Auto) 0.2, Baso # (Auto ) 0.0 07/13/17 11:30: Sodium 143, Potassium 4.0 D, Chloride 109 H, Carbon Dioxide 25 , Anion Gap 13.0, BUN 7, Creatinine 0.55 L, Estimated Creat Clear 41, Estimated GFR 142, Est GFR ( Amer) 172, Glucose 131 H 07/14/17 06:30: WBC 8.3, RBC 3.24 L, Hgb 10.0 L, Hct 31.8 L, MCV 98.2 H, MCH 30.8, MCHC 31.4 L, RDW 15.7, Plt Count 333 D, MPV 8.4, Neut % (Auto) 68.5, Lymph % (Auto) 20.2, [place] % (Auto) 6.8, Eos % (Auto) 4.2, Baso % (Auto) 0.2, Neut # (Auto) 5.7, Lymph # (Auto) 1.7, [place] # (Auto) 0.6, Eos # (Auto) 0.4, Baso # (Auto) 0.0 07/14/17 06:30: Sodium 141, Potassium 4.8, Chloride 105, Carbon Dioxide 30, Anion Gap 10.8, BUN 7, Creatinine 0.49 L, Estimated Creat Clear 41, Estimated GFR 163, Est GFR ( Amer) 197, Glucose 81 D I & O for Last 24 hours: Intake & Output 07/11/17 07/12/17 07/13/17 07/14/17 11:59 11:59 11:59 11:59 Intake Total 1167 / 1167 540 / 540 2052 Balance 1167 / 1167 540 / 540 2052 / 1760 Weight 115 lb 8.99 oz 115 lb 8.99 oz Microbiology Reports for the Last 24 Hours: Microbiology 07/09/17 18:10 Sputum - Expectorated Sputum Gram Stain - Final 07/09/17 18:10 Sputum - Expectorated Sputum Sputum Culture - Final Staphylococcus aureus Radiology Reports for the Last 24 Hours: 07/13/2017 chest x-ray IMPRESSION: Interval radiograph progression of dense left lower lobe pneumonia with more diffuse pneumonia involving left upper lobe along with what is likely left pleural effusion and suggest continued close follow-up - Constitutional no acute distress Comments: Awakened from sleep. - *Routine Respiratory Exam Present: decreased breath sounds (Posteriorly) - *Routine Cardiovascular Exam Present: RRR - *Routine Abdominal Exam Present: soft, normoactive bowel sounds. 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 Category: Medical Code(s): D02.21 - Carcinoma in situ of right bronchus and lung (3) ASCVD (arteriosclerotic cardiovascular disease) Current visit: Yes Status: Chronic Category: Medical Code(s): I25.10 - Atherosclerotic heart disease of [place] coronary artery without angina pectoris (4) Hypertension Current visit: Yes Status: Chronic Category: Medical Code(s): I10 - Essential (primary) hypertension (5) Hyperlipidemia Current visit: Yes Status: Chronic Category: Medical Code(s): E78.5 - Hyperlipidemia, unspecified (6) Type 2 diabetes mellitus Current visit: Yes Status: Chronic Category: Medical Code(s): E11.9 - Type 2 diabetes mellitus without complications (7) Iron deficiency anemia Current visit: Yes Status: Chronic Category: Medical Code(s): D50.9 - Iron deficiency anemia, unspecified (8) Dysphagia Current visit: Yes Status: Chronic Category: Medical Code(s): R13.10 - Dysphagia, unspecified (9) COPD (chronic obstructive pulmonary disease) Current visit: Yes Status: Chronic Category: Medical Code(s): J44.9 - Chronic obstructive pulmonary disease, unspecified (10) Chronic peptic ulcer Current visit: Yes Status: Chronic Category: Medical Code(s): K27.7 - Chronic peptic ulcer, site unspecified, without hemorrhage or perforation (11) Decubitus ulcer, stage 4 Current visit: Yes Status: Acute Qualifiers: Pressure ulcer location: sacral region Qualified Code(s): L89.154 - Pressure ulcer of sacral region, stage 4 Category: Medical Code(s): L89.94 - Pressure ulcer of unspecified site, stage 4 (12) Staph aureus infection Current visit: Yes Status: Acute Category: Medical Code(s): A49.01 - Methicillin susceptible Staphylococcus aureus infection, unspecified site - Assessment and plan all Dx Assessment and Plan for all problems:: Continue IV vancomycin and neb treatments. Continue wound care as per Dr. Lujan.
--- NOTE | 2017-07-14 09:02 | Progress Note ---
Subjective Patient reports: no new complaints Exam Vital signs and Labs for Last 24 Hours: Temp Pulse Resp BP Pulse Ox 98.7 F 85 20 130/70 94 L 07/14/17 07:45 07/14/17 07:45 07/14/17 07:45 07/14/17 07:45 07/14/17 07:45 Laboratory Results - last 24 hr 07/13/17 11:30: WBC 8.1, RBC 3.18 L, Hgb 9.8 L, Hct 30.9 L, MCV 97.2 H, MCH 30.7 , MCHC 31.6 L, RDW 15.5, Plt Count 252 D, MPV 9.4, Neut % (Auto) 79.3, Lymph % (Auto) 10.8, Crook % (Auto) 7.5, Eos % (Auto) 2.3, Baso % (Auto) 0.1, Neut # ( Auto) 6.4, Lymph # (Auto) 0.9, Crook # (Auto) 0.6, Eos # (Auto) 0.2, Baso # (Auto ) 0.0 07/13/17 11:30: Sodium 143, Potassium 4.0 D, Chloride 109 H, Carbon Dioxide 25 , Anion Gap 13.0, BUN 7, Creatinine 0.55 L, Estimated Creat Clear 41, Estimated GFR 142, Est GFR ( Amer) 172, Glucose 131 H 07/14/17 06:30: WBC 8.3, RBC 3.24 L, Hgb 10.0 L, Hct 31.8 L, MCV 98.2 H, MCH 30.8, MCHC 31.4 L, RDW 15.7, Plt Count 333 D, MPV 8.4, Neut % (Auto) 68.5, Lymph % (Auto) 20.2, Crook % (Auto) 6.8, Eos % (Auto) 4.2, Baso % (Auto) 0.2, Neut # (Auto) 5.7, Lymph # (Auto) 1.7, Crook # (Auto) 0.6, Eos # (Auto) 0.4, Baso # (Auto) 0.0 07/14/17 06:30: Sodium 141, Potassium 4.8, Chloride 105, Carbon Dioxide 30, Anion Gap 10.8, BUN 7, Creatinine 0.49 L, Estimated Creat Clear 41, Estimated GFR 163, Est GFR ( Amer) 197, Glucose 81 D I & O for Last 24 hours: Intake & Output 07/11/17 07/12/17 07/13/17 07/14/17 11:59 11:59 11:59 11:59 Intake Total 1167 / 1167 540 / 540 2052 1761 / 1761 Balance 1167 / 1167 540 / 540 2052 176 / 1761 Weight 115 lb 8.99 oz 115 lb 8.99 oz Microbiology Reports for the Last 24 Hours: Microbiology 07/09/17 18:10 Sputum - Expectorated Sputum Gram Stain - Final 07/09/17 18:10 Sputum - Expectorated Sputum Sputum Culture - Final Staphylococcus aureus - Constitutional no acute distress - *Routine Skin Exam Comments: Overall stable appearance of sacral decubitus ulceration status post debridement of necrotic tissue. Some patchy areas of sloughing tissue that may require future debridement. 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 Current Visit: Yes (3) ASCVD (arteriosclerotic cardiovascular disease) Status: Chronic Current Visit: Yes (4) Hypertension Status: Chronic Current Visit: Yes (5) Hyperlipidemia Status: Chronic Current Visit: Yes (6) Type 2 diabetes mellitus Status: Chronic Current Visit: Yes (7) Iron deficiency anemia Status: Chronic Current Visit: Yes (8) Dysphagia Status: Chronic Current Visit: Yes (9) COPD (chronic obstructive pulmonary disease) Status: Chronic Current Visit: Yes (10) Chronic peptic ulcer Status: Chronic Current Visit: Yes (11) Decubitus ulcer, stage 4 Status: Acute Assessment and plan: Overall, doing fairly well status post debridement of necrotic tissue. The need for additional intervention today; however, some debridement in the near future may be necessary. Continue dressing changes. May change to vacuum dressing in 24-48 hours if no need for additional debridement. Current Visit: Yes (12) Staph aureus infection Status: Acute Current Visit: Yes
[2017-07-14 11:04] LABS: Microscopic, Urine URINE MICROSCOPIC (MICROSCOPIC)
[2017-07-14 11:15] LABS: Appearance,Urine CLEAR (Clear); Bilirubin,Urine Negative (Negative); Blood, Urine TRACE-I (Negative); Color,Urine YELLOW (Yellow); Glucose,Urine (UA) Negative (Negative); Ketones,Urine Negative (Negative); Leukocyte Esterase,Urine Negative (Negative); Protein,Urine Negative (Negative); Specific Gravity, Urine 1.025 (1.005-1.030); Urobilinogen,Urine 0.2 EU/dl (0.2)
[2017-07-14 11:33] LABS: Bacteria,Urine 1+ /lpf; RBC,Urine Occasional #/hpf (0-3); Squamous Epithelial Cell,Urine Occasional #/hpf (0-5)
[2017-07-14 19:28] VITALS: BP 107/50
--- NOTE | 2017-07-15 00:47 | Death Note ---
Pronouncement Note - Date and Time of Date of : 07/15/17 Time of : 00:30 - PCOD Preliminary cause of : Pneumonia - Additional Data Confirmation of : no pulse, no respirations, no heart sounds, pupils fixed and dilated Family: not available Attending/PCP notified?: Yes Attending physician: Coretta Travis MD Was code activated?: No Autopsy requested?: No train examiner notified?: No Organ bank notified?: Yes Advance directives: Yes
--- NOTE | 2017-07-15 14:40 | Discharge Summary ---
General - General Admission date: 07/09/17 Discharge date: 07/15/17 HPI HPI: Mr. Robison was an 81yo patient of Dr. Johnson from [facility] who, according to the senior care record began having SOA with decreasing saturations even on 6L of oxygen. He had a hx of CAD, lung cancer, dementia, HLP, iron deficiency anemia, type 2 DM, PVD, COPD, anxiety, hx of peptic ulcer, and HTN. The patient was very hard of hearing and difficult to understand. He could answer yes or no to questions. He stated he had had a cough but did not feel SOA. He denied any pain. He was evaluated in the ER and found to have pneumonia. He was admitted for treatment. Hospital Course Hospital Course: His CXR showed a BELLA and LLL pneumonia. He was started on abx and a swallowing evaluation was ordered d/t some dysphagia. He had a huge stage IV decubitus in the coccygeal area. Wound care was consulted for treatment and they felt surgery should be consulted. Dr. Wood saw the patient and debrided the ulcer. He was moved to a pressure relieving bed. The patient became much more alert and responsive. By 07/13/17 however, Mr. Robison did not look as well. He sounded more congested. He was not moving air as well. His potassium was found to be low and he was given supplemental potassium. He sputum culture grew out staph and antibiotics were switched to vancomycin and clindamycin. He had some leg edema. An x-ray was ordered and lasix was given. The CXR showed worsening pneumonia. 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 On 07/15/17, the SRNA entered the room to obtain vitals and the patient was not breathing. No response was given to voice or sternal rub. Patient was a DNR. Neither the SRNA or nurse could feel a pulse or hear any audible heart sounds. Dr. Sharma came up from the ER and pronounced the patient. His time of was 29. Objective Vital signs: Temp Pulse Resp BP Pulse Ox 97.9 F 74 26 H 107/50 96 07/14/17 19:23 07/14/17 20:44 07/14/17 21:30 07/14/17 19:23 07/14/17 21:30 Narrative: - Constitutional no acute distress (hard of hearing, mumbled speech) - *Routine HEENT Exam Head: Present: normocephalic, atraumatic Eye: Present: EOMI, PERRL ENT: Present: mucous membranes dry - *Routine Neck Exam Present: supple, full ROM - *Routine Respiratory Exam Present: rhonchi (left side), crackles (left base) - *Routine Cardiovascular Exam Present: RRR - *Routine Abdominal Exam Present: soft, normoactive bowel sounds. 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 (4) ASCVD (arteriosclerotic cardiovascular disease) Status: Chronic (5) Hypertension Status: Chronic (6) Hyperlipidemia Status: Chronic (7) Type 2 diabetes mellitus Status: Chronic (8) Iron deficiency anemia Status: Chronic (9) Dysphagia Status: Chronic (10) COPD (chronic obstructive pulmonary disease) Status: Chronic (11) Chronic peptic ulcer Status: Chronic (12) Decubitus ulcer, stage 4 Status: Acute Discharge Plan - Patient Discharge Instructions Patient Instructions: Methicillin-Resistant Staph Infection - Follow up Plan Disposition: Home Medications: Home Medications Medication Instructions Recorded Confirmed Type ALPRAZolam [Xanax 0.25mg tab] 0.25 mg PO HS 07/09/17 07/09/17 History Acetaminophen [Tylenol 500mg 500 mg PO Q4HP PRN 07/09/17 07/09/17 History tablet] Acetaminophen with Codeine 1 tab PO Q4HP PRN 07/09/17 07/09/17 History [Tylenol with Codeine #3 tablet] Amlodipine Besylate [Amlodipine 10 mg PO DAILY 07/09/17 07/09/17 History 10mg Tab] Atorvastatin Calcium [Atorvastatin 10 mg PO HS 07/09/17 07/09/17 History 10mg Tab] Bisacodyl [Bisacodyl 10mg Supp] 10 mg RC DAILYP PRN 07/09/17 07/09/17 History Carvedilol [Coreg 12.5mg 12.5 mg PO 0700,1700 07/09/17 07/09/17 History Tablet] Cholecalciferol (Vitamin D3) 50,000 unit PO WEEKLY 07/09/17 07/09/17 History [Vitamin D3 50,000 unit Cap] Clopidogrel Bisulfate [Plavix 75mg 75 mg PO DAILY 07/09/17 07/09/17 History Tab] Docusate Sodium [Colace 250mg 250 mg PO DAILY 07/09/17 07/09/17 History capsule] Famotidine [Acid Controller] 20 mg PO DAILY 07/09/17 07/09/17 History Ferrous Sulfate [Ferrous Sulfate 325 mg PO DAILY 07/09/17 07/09/17 History 325mg Tablet] Gabapentin [Gabapentin 300mg Cap] 300 mg PO TID 07/09/17 07/09/17 History Ipratropium/Albuterol Sulfate 1 puff IH QIDRT 07/09/17 07/09/17 History [Combivent Respimat Inh] Isosorbide Mononitrate [Imdur 30mg 30 mg PO DAILY 07/09/17 07/09/17 History ER tablet] L. Acidophilus/L.bulgaricus 1 each PO BID 07/09/17 07/09/17 History [Floranex Tablet] Loperamide HCl [Loperamide] 2 mg PO Q3HP PRN 07/09/17 07/09/17 History Loratadine [Claritin] 10 mg PO DAILY 07/09/17 07/09/17 History Mag Carb/Aluminum Hydrox/Algin 30 ml PO TID 07/09/17 07/09/17 History [Gaviscon Extra Strength Liquid] Mirtazapine [Remeron 15mg tablet] 15 mg PO HS 07/09/17 07/09/17 History Multivitamin [Multi-Day Vitamins] 1 tab PO DAILY 07/09/17 07/09/17 History Nitroglycerin 0.4 mg SL Q5MINP PRN 07/09/17 07/09/17 History Ondansetron HCl [Zofran 4mg Tab] 4 mg PO Q8H PRN 07/09/17 07/09/17 History Phenol [Chloraseptic] 2 sprays MM Q4H PRN 07/09/17 07/09/17 History Quetiapine Fumarate [Seroquel] 25 mg PO HS 07/09/17 07/09/17 History Sennosides [Senokot 8.6mg tablet] 17.2 mg PO BID 07/09/17 07/09/17 History Sod Phos,M-B/Na Phos,Di-Ba [Enema 133 ml RC DAILY PRN 07/09/17 07/09/17 History Ready To Use] Vit C/Dietary Supplement No.18 1,000 mg PO DAILY 07/09/17 07/09/17 History [Red Wine Extract Plus Capsule] guaiFENesin [Robafen] 100 mg PO Q6HP PRN 07/09/17 07/09/17 History Prescriptions/Medication Reconciliation: No Action Sennosides [Senokot 8.6mg tablet] 17.2 mg PO BID Carvedilol [Coreg 12.5mg Tablet] 12.5 mg PO 0700,1700 Amlodipine Besylate [Amlodipine 10mg Tab] 10 mg PO DAILY Bisacodyl [Bisacodyl 10mg Supp] 10 mg RC DAILYP PRN PRN Reason: Constipation Vit C/Dietary Supplement No.18 [Red Wine Extract Plus Capsule] 1,000 mg PO DAILY Sod Phos,M-B/Na Phos,Di-Ba [Enema Ready To Use] 133 ml RC DAILY PRN PRN Reason: Constipation Quetiapine Fumarate [Seroquel] 25 mg PO HS Phenol [Chloraseptic] 2 sprays MM Q4H PRN PRN Reason: Sore Throat Ondansetron HCl [Zofran 4mg Tab] 4 mg PO Q8H PRN PRN Reason: Nausea Nitroglycerin 0.4 mg SL Q5MINP PRN PRN Reason: Chest Pain Multivitamin [Multi-Day Vitamins] 1 tab PO DAILY Mirtazapine [Remeron 15mg tablet] 15 mg PO HS Mag Carb/Aluminum Hydrox/Algin [Gaviscon Extra Strength Liquid] 30 ml PO TID Loperamide HCl [Loperamide] 2 mg PO Q3HP PRN PRN Reason: Diarrhea Isosorbide Mononitrate [Imdur 30mg ER tablet] 30 mg PO DAILY Ipratropium/Albuterol Sulfate [Combivent Respimat Inh] 1 puff IH QIDRT Gabapentin [Gabapentin 300mg Cap] 300 mg PO TID Ferrous Sulfate [Ferrous Sulfate 325mg Tablet] 325 mg PO DAILY Famotidine [Acid Controller] 20 mg PO DAILY Cholecalciferol (Vitamin D3) [Vitamin D3 50,000 unit Cap] 50,000 unit PO WEEKLY Atorvastatin Calcium [Atorvastatin 10mg Tab] 10 mg PO HS Acetaminophen with Codeine [Tylenol with Codeine #3 tablet] 1 tab PO Q4HP PRN PRN Reason: BREAKTHROUGH PAIN Acetaminophen [Tylenol 500mg tablet] 500 mg PO Q4HP PRN PRN Reason: pain guaiFENesin [Robafen] 100 mg PO Q6HP PRN PRN Reason: Cough L. Acidophilus/L.bulgaricus [Floranex Tablet] 1 each PO BID Clopidogrel Bisulfate [Plavix 75mg Tab] 75 mg PO DAILY Loratadine [Claritin] 10 mg PO DAILY Docusate Sodium [Colace 250mg capsule] 250 mg PO DAILY ALPRAZolam [Xanax 0.25mg tab] 0.25 mg PO HS
== END 2017-07-15 04:12 | disposition expired ==
LOC: ER 08:43 → 2ND 11:28
PROVIDERS: ADMIT Family Medicine; ATTEND Family Medicine